=== PATIENT | female | born 1995 | race Two or more races ===

== ENCOUNTER 2024-09-24 21:21 | Emergency (ER) | payer OTHER ==
[~2024-09-24] VITALS: Ht 160 cm; Wt 68.0 kg
[2024-09-24] MEDS ORDERED: CLARITIN10 M1 (22:00)
[2024-09-24] MEDS ORDERED: ZESTRIL10 M1 (22:00)
[2024-09-24] MEDS ORDERED: PANTOPRAZOLE SODIUM 40 MG/VIAL VIAL IV ONE (23:00)
[2024-09-24 23:46] LABS: INR 0.99; PARTIAL THROMBOPLASTIN TIME 31.3 SECONDS (22.0-34.0); PROTHROMBIN TIME 10.8 SECONDS (9.0-11.5)
[2024-09-24 23:52] LABS: ALBUMIN 4.2 gm/dL (3.4-5.0); ALKALINE PHOSPHATASE 77 U/L (50-136); ALT/SGPT 33 U/L (12-78); ANION GAP 10 (10.0-20.0); AST/SGOT 34 U/L (15-37); BILIRUBIN TOTAL 0.19 mg/dL (0.3-1.2); BLOOD UREA NITROGEN 17 mg/dL (7-18); BUN CREA RATIO 20 (7.0-25.0); CALCIUM 9.5 mg/dL (8.5-10.1); CARBON DIOXIDE 25 mEq/L (21-32); CHLORIDE 111 mmol/L (98-107); CREATININE SERUM 0.85 mg/dL (0.55-1.02); GFR 78.53; GLOBULINA 5.4 G/DL (2.4-3.5); GLUCOSE FASTING 100 mg/dL (65-100); OSMOLALITY SERUM 285 MOSM/KG (275-295); POTASSIUM 4.06 mEq/L (3.5-5.1); SODIUM 142 mmol/L (136-145); TOTAL PROTEIN 9.6 gm/dL (6.4-8.2)
[2024-09-24 23:56] LABS: HCG QUANTITATIVE < 1 mUI/mL (1-3)
[2024-09-25 00:07] LABS: HEMOGLOBIN 11.5 g/dL (12.0-15.00); MEAN CORPUSCULAR HEMOGLOBIN 28.1 pg (27.00-32.0); MEAN CORPUSCULAR HGB CONC 33.9 g/dl (32.0-36.0); RED CELL DISTRIBUTION WIDTH 13.3 % (11.5-14.5)
[2024-09-25 00:09] LABS: PLATELET COUNT 14 K/uL (150-450)
[2024-09-25 00:53] LABS: PH,URINE 5.5 (5.0-8.0); URINE APPEARANCE Clear; URINE BILIRRUBIN Negative (NEGATIVE); URINE BLOOD Negative; URINE COLOR Yellow; URINE GLUCOSE Negative (NEGATIVE); URINE KETONE Negative (NEGATIVE); URINE LEUKOCYTE Negative; URINE NITRATE Negative
[2024-09-25 00:58] LABS: URINE EPITHELIAL CELLS 9.1 uL (0.0-38.8); URINE RBC 13.8 uL (0.0-20.8)
[2024-09-25 01:12] LABS: URINE PROTEIN 100 (NEGATIVE)
== END 2024-09-25 04:38 | disposition home or self-care (01) ==
LOC: ER 21:22
PROVIDERS: General Practice
DX: D69.6 Thrombocytopenia, unspecified (principal); K62.5 Hemorrhage of anus and rectum; I10 Essential (primary) hypertension; Z91.038 Other insect allergy status
CPT/HCPCS: 36415; 74177; Q9965